=== PATIENT | male | born 1995 | race Caucasian/White ===

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

== ENCOUNTER 2017-01-07 06:14 | Emergency (ER) | payer OTHER ==
[~2017-01-07] VITALS: Ht 172.7 cm; Wt 96.5 kg
[~2017-01-07 06:14] MED LIST changes: -FAMO-18 PO; +FAMO-96 PO; -KENC1 TOP; +TRIA15CR55 TOP
[2017-01-07 06:17] VITALS: Ht 172.7 cm; Wt 96.5 kg
[2017-01-07] MEDS ORDERED: SOD CHLORIDE 0.9% 1,000 ML IV STA (07:09)
[2017-01-07] MEDS ORDERED: ONDANSETRON 4 MG INJ IV STA (07:27)
[2017-01-07] MEDS ORDERED: HYDROmorphONE 1 MG/ML SYG IV STA (07:27)
[2017-01-07 07:56] LABS: BASOPHILS % 0.1 % (0.0-2.0); EOSINOPHILS # 0.1 10^3/ul (0.0-0.5); EOSINOPHILS % 0.5 % (0.0-7.0); HEMATOCRIT 45.1 % (42.0-52.0); HEMOGLOBIN 15.3 g/dl (14.0-18.0); LYMPHOCYTES # 0.6 10^3/ul (0.8-2.9); LYMPHOCYTES % 6.3 % (18.0-55.0); MEAN CORPUSCULAR HEMOGLOBIN 30.1 pg (29.0-33.0); MEAN CORPUSCULAR HGB CONC 33.9 g/dl (32.0-37.0); MEAN CORPUSCULAR VOLUME 88.6 fl (72.0-104.0); MEAN PLATELET VOLUME 9.8 fl (7.4-10.4); MONOCYTE # 0.5 10^3/ul (0.3-0.9); MONOCYTES % 4.7 % (0.0-13.0); NEUTROPHIL # 8.4 10^3/ul (1.6-7.5); NEUTROPHILS % 87.8 % (30.0-74.0); PLATELET COUNT 224 10^3/UL (140-415); RED BLOOD COUNT 5.09 10^6/ul (4.70-6.10); RED CELL DISTRIBUTION WIDTH 12.5 % (11.5-14.5); WHITE BLOOD COUNT 9.5 10^3/ul (4.8-10.8)
[2017-01-07 08:08] LABS: ALBUMIN 4.8 g/dl (3.3-4.9); ALBUMIN/GLOBULIN RATIO 1.6; BILIRUBIN,INDIRECT 0.4 mg/dl (0-1.1); BILIRUBIN,TOTAL 0.4 mg/dl (0.2-1.3); CALCIUM 9.6 mg/dl (8.4-10.2); CREATININE 0.9 mg/dl (0.61-1.24); POTASSIUM 3.9 mmol/L (3.5-5.1); TOTAL PROTEIN 7.8 g/dl (6.1-8.1)
[2017-01-07 08:12] LABS: UR RBC 0 /HPF (0-5)
[2017-01-07 08:16] LABS: ADD UMIC NO; UR ASCORBIC ACID NEGATIVE (NEGATIVE); UR BILIRUBIN (Dip) NEGATIVE (NEGATIVE); UR BLOOD (Dip) NEGATIVE (NEGATIVE); UR CLARITY CLEAR (CLEAR); UR COLOR YELLOW (YELLOW); UR GLUCOSE (Dip) NEGATIVE (NEGATIVE); UR KETONES (Dip) NEGATIVE (NEGATIVE); UR LEUKOCYTE ESTERASE (Dip) NEGATIVE Leu/ul (NEGATIVE); UR NITRITE (Dip) NEGATIVE (NEGATIVE); UR SPECIFIC GRAVITY (Dip) 1.019 (1.003-1.030); UR TOTAL PROTEIN (Dip) NEGATIVE (NEGATIVE); UR UROBILINOGEN (Dip) NEGATIVE (NEGATIVE)
[2017-01-07] MEDS ORDERED: LOPE2CAP PO (08:23)
[2017-01-07] MEDS ORDERED: ONDA4TAB8 PO (08:23)
--- NOTE | 2017-01-07 08:29 | ERD ---
ER Documentation Chief Complaint Date/Time DATE: 01/07/17 TIME: 0702 Chief Complaint vomiting since 4 am, active vomiting in intake HPI 21-year-old male presents to the emergency department complaining of nausea vomiting and diarrhea for 1 day. Patient states his family was sick with a similar type presentation. Today, patient began developing nonbilious, nonbloody emesis. He had multiple episodes of diarrhea with no blood in his stool. Patient denies fevers, chills , localizing abdominal pain. ROS All systems reviewed and are negative except as per history of present illness. Medications Home Meds Active Scripts Loperamide Hcl* (Imodium*) 2 Mg Capsule, 2 MG PO .AFTER EA LOOSE BM Y for DIARRHEA, #10 TAB Prov:JACQUELINE HOFFMAN 01/07/17 Ondansetron Hcl* (Zofran*) 4 Mg Tablet, 4 MG PO Q8H Y for NAUSEA AND/OR VOMITING , #30 TAB Prov:JACQUELINE HOFFMAN 01/07/17 Triamcinolone Acetonide (Triamcinolone Acetonide) 0.1% - 15 Gm Cream.gm., 1 APPLIC TOP BID, #1 TUB Prov:IJNA ASHER-C 08/12/16 Famotidine* (Pepcid*) 20 Mg Tablet, 20 MG PO BID for 4 Days, TAB Prov:JINA ASHER-C 08/12/16 Diphenhydramine Hcl* (Benadryl*) 25 Mg Cap, 25 MG PO Q6, #30 CAP Prov:JINA ASHER-C 08/12/16 Cetirizine Hcl* (Zyrtec*) 10 Mg Capsule, 10 MG PO DAILY, #30 TAB.CHEW Prov:JINA ASHER-C 08/12/16 Prednisone* (Prednisone*) 20 Mg Tab, 40 MG PO DAILY for 4 Days, TAB Prov:JINA ASHER-C 08/12/16 Metronidazole* (Flagyl*) 500 Mg Tablet, 500 MG PO TID for 10 Days, TAB Prov:LALA ADRIAN 02/28/16 Levofloxacin* (Levofloxacin*) 750 Mg Tablet, 750 MG PO DAILY for 10 Days, TAB Prov:LALA ADRIAN 02/28/16 Reported Medications Ubidecarenone/Vitamin E Mixed (Coq10 Sg 100 Softgel) 1 Cap Capsule 04/19/12 Omeprazole* (Prilosec*) 10 Mg Cap, 1 TAB PO BID, 0 Refills 07/18/10 Amitriptyline Hcl* (Amitriptyline Hcl*) 10 Mg Tablet, 60 MG PO DAILY, 0 Refills 07/18/10 Allergies Allergies: Coded Allergies: Grape Juice (Verified Allergy, Mild, 02/25/16) Penicillins (Verified Allergy, Mild, 02/25/16) milk (Verified Allergy, Mild, 02/25/16) PMhx/Soc History of Surgery: Yes (G -tube placement.) Anesthesia Reaction: No Hx Neurological Disorder: No Hx Respiratory Disorders: Yes (ASTHMA) Hx Cardiac Disorders: No Hx Psychiatric Problems: No Hx Miscellaneous Medical Probl: Yes (Mitochondrial disease) Hx Alcohol Use: No Hx Substance Use: Yes (Xanax 4-5 pills, marijuanna 1g a day and 1 bottle of alcohol every 2-3 week) Hx Tobacco Use: No Smoking Status: Never smoker FmHx Noncontributory for chief complaint Physical Exam Vitals Vital Signs Date Time Temp Pulse Resp B/P Pulse Ox O2 Delivery O2 Flow Rate FiO2 01/07/17 07:15 98.2 80 16 124/74 100 Room Air 01/07/17 06:17 98.2 82 20 158/96 98 Physical Exam GENERAL: The patient is well developed and appropriate for usual state of health in no apparent distress HEENT: Pupils equal, round, and reactive to light. EOMI. There is no scleral icterus. NECK: C-spine is soft and supple, there is no meningismus. There is no cervical lymphadenopathy. LUNGS: Clear to auscultation bilaterally. There are no rales, wheezes or rhonchi. HEART: Regular rate and rhythm, no murmurs, clicks, rubs or gallops. ABDOMEN: Soft, non-tender, non-distended. There are bowel sounds in all four quadrants. No rebound or guarding. EXTREMITIES: There is no peripheral cyanosis or edema. No focal swelling or erythema. NEURO: The patient moves all four extremities with 5/5 strength. Cranial nerves II - XII are intact. Normal gait. Alert and oriented SKIN: There is no apparent rash or petechiae. HEME/LYMPHATIC: There is no evidence of excessive bruising or lymphedema. PSYCHIATRIC: The patient does not appear anxious or depressed. Result Diagram: 01/07/17 0715 Results 24 hrs Laboratory Tests Test 01/07/17 07:15 White Blood Count Pending Red Blood Count Pending Hemoglobin Pending Hematocrit Pending Mean Corpuscular Volume Pending Mean Corpuscular Hemoglobin Pending Mean Corpuscular Hemoglobin Concent Pending Red Cell Distribution Width Pending Platelet Count Pending Mean Platelet Volume Pending Urine Color YELLOW Urine Clarity CLEAR Urine pH 9.0 Urine Specific [place] 1.019 Urine Ketones NEGATIVEmg/dL Urine Nitrite NEGATIVEmg/dL Urine Bilirubin NEGATIVEmg/dL Urine Urobilinogen NEGATIVEmg/dL Urine Leukocyte Esterase NEGATIVELeu/ul Urine Microscopic RBC 0/HPF Urine Microscopic WBC 0/HPF Urine Hemoglobin NEGATIVEmg/dL Urine Glucose NEGATIVEmg/dL Urine Total Protein NEGATIVEmg/dl Sodium Level 143mmol/L Potassium Level 3.9mmol/L Chloride Level 100mmol/L Carbon Dioxide Level 29mmol/L Anion Gap 18 Blood Urea Nitrogen 15mg/dl Creatinine 0.90mg/dl Glucose Level 95mg/dl Calcium Level 9.6mg/dl Total Bilirubin 0.4mg/dl Direct Bilirubin 0.00mg/dl Indirect Bilirubin 0.4mg/dl Aspartate Amino Transf (AST/SGOT) 38IU/L Alanine Aminotransferase (ALT/SGPT) 45IU/L Alkaline Phosphatase 67IU/L Total Protein 7.8g/dl Albumin 4.8g/dl Globulin 3.00g/dl Albumin/Globulin Ratio 1.60 Lipase 54U/L Current Medications Medications (Trade) Dose Ordered Sig/Judith Route PRN Reason Start Time Stop Time Status Last Admin Dose Admin Sodium Chloride (NS) 1,000 ml @ 1,000 mls/hr Q1H STAT IV 01/07/17 07:09 01/07/17 08:08 DC 01/07/17 07:35 Ondansetron HCl (Zofran Inj) 4 mg ONCE STAT IV 01/07/17 07:27 01/07/17 07:29 DC 01/07/17 07:35 Hydromorphone HCl (Dilaudid) 1 mg ONCE STAT IV 01/07/17 07:27 01/07/17 07:29 DC 01/07/17 07:35 Procedures/MDM Patient was taken to a room, seen and evaluated. Comfort measures were initiated. Diagnostic tests were ordered and reviewed. REEVALUATION: Serial examinations of the patient's abdomen remained benign and he appeared clinically well after hydration MEDICAL DECISION MAKIN-year-old presents to the emergency department with what appears to be a simple gastroenteritis. Clinical examination does not demonstrate significant dehydration or appendicitis. Overall, patient appears to be clinically well after supportive care and appropriate for outpatient care. Departure Diagnosis: Primary Impression: Nausea, vomiting, and diarrhea Condition: Stable Patient Instructions: Food Poisoning Or Gastroenteritis (6Y-Adult) Referrals: SUMMER GUSMAN MD (PCP) Additional Instructions: Please see your doctor or return here if not improving in the next 24-48 hours. Return sooner for any worsening problems or concerns JACQUELINE HOFFMAN Jan 07, 2017 08:29
[2017-01-07 09:08] VITALS: BP 116/70; PULSE 69; RESP 16; TEMP 98.1
== END 2017-01-07 09:17 | disposition home or self-care (01) ==
LOC: E/R 06:14
DX: R11.2 Nausea with vomiting, unspecified (principal); R19.7 Diarrhea, unspecified; J45.909 Unspecified asthma, uncomplicated; R40.2142 Coma scale, eyes open, spontaneous, at arrival to emergency department; R40.2252 Coma scale, best verbal response, oriented, at arrival to emergency department; R40.2362 Coma scale, best motor response, obeys commands, at arrival to emergency department
CPT/HCPCS: 80053; 81003; 83690; 85025; J7030; 36415; 96361; 96374; 96375; J1170; J2405